=== PATIENT | female | born 1970 | race Caucasian/White ===

== ENCOUNTER → 2016-06-20 | Outpatient (CLI) | payer OTHER ==
[~2016-06-20] MED LIST: CATAPRES 0.1MG0.1 MG PO; COMBIPATCH 0.01 EAC1 TD; HUMALOG100 UNIT/2 SQ; LEVEMIR100 UNIT/1 SQ; LOPRESSOR50 MG PO; NAPROXEN 250 M250 MG PO; NEURONTIN 400400 MG PO; NORCO 5-325 TA1 EACH PO; SEROQUEL100 MG PO; SPIRIVA RESPIMAT4 GM INH; ZESTRIL/PRINIVI10 MG PO
[2016-06-20 11:57] LABS: HEMOGLOBIN 15.2 gm/dl (12.3-15.3); RED BLOOD COUNT 5.43 M/UL (4.00-5.10); WHITE BLOOD COUNT 7.5 K/UL (4.5-11.0)
[2016-06-20 12:26] LABS: BUN/CREATININE RATIO 16 (0-10)
== END ==
LOC: LAB 10:46
PROVIDERS: Nurse Practitioner Family
DX: I10 Essential (primary) hypertension (principal); G47.00 Insomnia, unspecified; G43.909 Migraine, unspecified, not intractable, without status migrainosus; E11.9 Type 2 diabetes mellitus without complications; E55.9 Vitamin D deficiency, unspecified; D64.9 Anemia, unspecified
CPT/HCPCS: 36415; 80053; 80061; 83036; 83540; 83550; 84439; 84443; 85027

== ENCOUNTER → 2016-08-24 | Outpatient (CLI) | payer OTHER | LOC: RAD 13:49 | DX: R06.02 Shortness of breath (principal) | CPT/HCPCS: 71020 ==

== ENCOUNTER → 2020-04-26 | Outpatient (CLI) | payer OTHER ==
[~2020-04-26] MED LIST changes: +ANORO ELLIPTA1 EACH INH; +ANTIVERT 25MG T25 MG PO; +BARACLUDE0.5 MG PO; +BUPRENORPHIN-N1 EACH PO; +JANTOVEN5 MG PO; +LEXAPRO TAB 1010 MG PO; +LISINOPRIL-HCT1 EAC2 PO; +MICAFUNGIN; +MIRALAX17 GM PO; +NORCO 7.5-3251 EACH PO; +OMEPRAZOLE20 MG PO; +OMNICEF 300 MG300 MG PO; +TOPAMAX50 MG PO; +VENTOLIN HFA 66.7 GM INH; +VIREAD300 MG PO; -ZESTRIL/PRINIVI10 MG PO; +rocephin; +vancomycin
[2020-04-28 07:11] LABS: CORTISOL 15.2 ug/dL (.); DHEA-SULFATE 32.8 ug/dL (41.2-243.7); ESTRADIOL 9.7 pg/mL (.); PROGESTERONE 0.2 ng/mL (.); TESTOSTERONE, SERUM 5 ng/dL (8-48); TRIIODOTHYRONINE (T3) 117 ng/dL (71-180)
[2020-04-28 08:14] LABS: FSH, SERUM 43.5 mIU/mL (.)
== END ==
LOC: LAB 08:22
PROVIDERS: Nurse Practitioner
DX: E34.9 Endocrine disorder, unspecified (principal)
CPT/HCPCS: 36415; 82533; 82627; 82670; 83001; 84144; 84403; 84439; 84443; 84480

== ENCOUNTER 2020-05-06 16:33 | Emergency (ER) | payer OTHER ==
[~2020-05-06] VITALS: Ht 170.2 cm; Wt 79.8 kg
[~2020-05-06 16:33] MED LIST changes: -ANORO ELLIPTA1 EACH INH; -BARACLUDE0.5 MG PO; -JANTOVEN5 MG PO; -LEXAPRO TAB 1010 MG PO; -OMEPRAZOLE20 MG PO; -TOPAMAX50 MG PO
[2020-05-06 17:15] LABS: HEMOGLOBIN 9.1 gm/dl (12.3-15.3); RED BLOOD COUNT 3.56 M/UL (4.00-5.10); WHITE BLOOD COUNT 4.9 K/UL (4.5-11.0)
[2020-05-06] MEDS ORDERED: ANORO ELLIPTA1 EACH INH (21:21)
[2020-05-06] MEDS ORDERED: BARACLUDE0.5 MG PO (21:21)
[2020-05-06] MEDS ORDERED: OMEPRAZOLE20 MG PO (21:23)
[2020-05-06] MEDS ORDERED: LEXAPRO TAB 1010 MG PO (21:44)
[2020-05-06] MEDS ORDERED: TOPAMAX50 MG PO (21:52)
[2020-05-06] MEDS ORDERED: JANTOVEN5 MG PO (21:53)
== END 2020-05-07 04:30 | disposition short-term general hospital (02) ==
LOC: ER1 16:33 → CDU 19:05 → ER1 05-07 04:30
PROVIDERS: Internal Medicine; Preventive Medicine Occupational Medicine
DX: A41.9 Sepsis, unspecified organism (principal); J69.0 Pneumonitis due to inhalation of food and vomit; R65.21 Severe sepsis with septic shock; N17.9 Acute kidney failure, unspecified; R79.1 Abnormal coagulation profile; I61.9 Nontraumatic intracerebral hemorrhage, unspecified; J44.9 Chronic obstructive pulmonary disease, unspecified; I10 Essential (primary) hypertension; F17.210 Nicotine dependence, cigarettes, uncomplicated; Z95.2 Presence of prosthetic heart valve; Z88.5 Allergy status to narcotic agent; Z20.822 Contact with and (suspected) exposure to COVID-19
CPT/HCPCS: 31500; 36430; 36556; 36600; 70450; 71045; 80053; 80307; 81001; 82550; 82553; 82803; 82962; 83605; 83874; 83880; 84300; 84484; 85025; 85384; 85610; 85652; 85730; 86140; 86900; 86901; 86927; 87040; 87077; 87081; 87086; 87880; 89050; 93005; 94002; 94640; 94660; 94760; 96365; 96366; 96367; 96375; 99285; C1751; J0456; J1100; J1956; J2185; J2248; J2250; J2704; J3370; J3430; P9017; U0002